=== PATIENT | female | born 1960 | race Two or more races ===

== ENCOUNTER 2024-02-15 13:26 | Emergency (ER) | payer MEDICAID, OTHER ==
[~2024-02-15] VITALS: Ht 167.6 cm; Wt 57.0 kg
[2024-02-15] MEDS: LIDOCAINE 1% HCL (LOCAL ANESTH.) INJ 20ML MDV ID ONE (15:52)
[2024-02-15] MEDS ORDERED: CEPH250C PO (16:28)
[2024-02-15] MEDS ORDERED: ACE3T PO (16:28)
[2024-02-15] MEDS ORDERED: IBUP-1454 PO (16:28)
[2024-02-15] MEDS: TETANUS-DIPTH-ACEL PERTUSSIS 0.5ML SYR Tdap IM ONE (16:35)
[2024-02-15 16:41] VITALS: BP 101/75; PULSE 90; RESP 16; TEMP 97.9; O2SAT 96
== END 2024-02-15 16:44 | disposition home or self-care (01) ==
LOC: ER 13:26 → EDBD 13:26 → ER 16:44
DX: S51.812A Laceration without foreign body of left forearm, initial encounter (principal); W01.198A Fall on same level from slipping, tripping and stumbling with subsequent striking against other object, initial encounter; Y93.89 Activity, other specified; Y92.89 Other specified places as the place of occurrence of the external cause; Y99.8 Other external cause status
CPT/HCPCS: 12004; 73090; 90471; 90715

== ENCOUNTER 2024-03-25 11:52 | Emergency (ER) | payer MEDICAID ==
[~2024-03-25] VITALS: Ht 167.6 cm; Wt 56.8 kg
[~2024-03-25 11:52] MED LIST: ACE3T PO; CEPH250C PO; IBUP-1454 PO
[2024-03-25 12:14] VITALS: BP 154/98; PULSE 76; RESP 16; TEMP 98.2; O2SAT 97
[2024-03-25] MEDS ORDERED: IBUP1TAB5 PO (14:48)
== END 2024-03-25 14:51 | disposition home or self-care (01) ==
LOC: ER 11:52
DX: R07.81 Pleurodynia (principal); Z88.0 Allergy status to penicillin
CPT/HCPCS: 71101